=== PATIENT | female | born 1955 | race Caucasian/White ===

== ENCOUNTER 2024-05-07 07:25 | Day surgery (SDC) | payer MEDICARE ==
[2024-05-07] MEDS ORDERED: Propofol 200 MG/20 ML SDV ONE (07:41)
[2024-05-07] MEDS ORDERED: fentaNYL 50 MCG/ML SDV ONE (07:42)
[2024-05-07] MEDS ORDERED: Dextrose 5%-Lactated Ringers 1,000 ML IV SCH (08:00)
[2024-05-07] MEDS: Lactated Ringers 1,000 ML IV SCH (08:23)
[2024-05-08] MEDS ORDERED: Lactated Ringers 1,000 ML IV SCH (08:00)
== END 2024-05-07 10:20 | disposition home or self-care (01) ==
LOC: JP.SDS 07:25
PROVIDERS: ATTEND Surgery
DX: Z12.11 Encounter for screening for malignant neoplasm of colon (principal); D12.2 Benign neoplasm of ascending colon
CPT/HCPCS: 00811; 45385; 88305; J2704; J3010; J7120